=== PATIENT | female | born 1965 | race Caucasian/White ===

== ENCOUNTER → 2021-06-18 | Emergency (ER) | payer BC ==
[~2021-06-18] VITALS: Ht 165.1 cm; Wt 81.6 kg
--- NOTE | 2021-06-18 11:52 | NUR ---
pt came in c/o swollen left hand s/p fall yesterday. pt denies pain at this time.
[2021-06-18 13:07] VITALS: BP 119/79
--- NOTE | 2021-06-18 13:08 | NUR ---
Patient discharged to home in stable condition. Written and verbal after care instructions given. Patient verbalizes understanding of instruction.
== END | disposition home or self-care (01) ==
LOC: ER 11:29
DX: S60.222A Contusion of left hand, initial encounter (principal); W01.0XXA Fall on same level from slipping, tripping and stumbling without subsequent striking against object, initial encounter; Y93.89 Activity, other specified; Y92.89 Other specified places as the place of occurrence of the external cause; Y99.8 Other external cause status
CPT/HCPCS: 73110; 73130-TC

== ENCOUNTER 2021-11-30 14:37 | Emergency (ER) | payer SELFPAY ==
[~2021-11-30] VITALS: Ht 170.2 cm; Wt 81.6 kg
--- NOTE | 2021-11-30 14:45 | NUR ---
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
--- NOTE | 2021-11-30 14:50 | NUR ---
DR SANDERS AT BEDSIDE FOR EVAL
--- NOTE | 2021-11-30 15:20 | NUR ---
PATIENT REFUSED BLOOD WORK, MD SANDERS AWARE
--- NOTE | 2021-11-30 15:31 | NUR ---
Patient discharged to home in stable condition. Written and verbal after care instructions given. Patient verbalizes understanding of instruction.
[2021-11-30 15:32] VITALS: BP 135/73
== END 2021-11-30 15:33 | disposition home or self-care (01) ==
LOC: ER 14:39
DX: R25.3 Fasciculation (principal); R20.2 Paresthesia of skin